=== PATIENT | female | born 1940 | race Caucasian/White ===

== ENCOUNTER → 2016-11-21 | Outpatient (CLI) | payer OTHER ==
[~2016-11-21] MED LIST: ASPI-232 PO; CYCL5TAB PO; ESTR1 PO; ESTROGENS-METHYLTEST PO; GABA-113 PO; LEVO75TA PO; MULTTAB58 PO; OMEG12006 PO
--- NOTE | 2016-11-21 12:01 | DIAGNOSTIC IMAGING REPORT ---
RIGHT SHOULDER MIN 2 VIEWS ROUTINE CLINICAL HISTORY: Right shoulder pain COMPARISON: None. DISCUSSION: No fractures or dislocations are visualized. There are no visible periarticular calcifications. Minor degenerative changes are present within the AC joint. There are postsurgical changes of midline sternotomy. There are postsurgical changes within the cervical spine. IMPRESSION: Unremarkable conventional radiographic evaluation of the right shoulder for age Electronically signed by: Davy Balderrama M.D. 11/21/2016 12:00 PM Dictated Date/Time: 11/21/2016 11:59 AM
--- NOTE | 2016-11-21 12:06 | DIAGNOSTIC IMAGING REPORT ---
LEFT SHOULDER 3 VIEWS HISTORY: BILATERAL SHOULDER PAIN COMPARISON: None. FINDINGS: There is no fracture or dislocation. Soft tissues are unremarkable. Poststernotomy changes are noted. There is slight cartilage space narrowing and a tiny marginal osteophyte at the glenohumeral joint. This is consistent with mild degenerative change. The left clavicle is intact. IMPRESSION: Mild left shoulder osteoarthritis. No fracture or dislocation. Electronically signed by: Magdiel Altman M.D. 11/21/2016 12:05 PM Dictated Date/Time: 11/21/2016 12:03 PM
== END | disposition home or self-care (01) ==
LOC: C.RAD1850 11:15
PROVIDERS: ATTEND Family Medicine
DX: M25.511 Pain in right shoulder (principal)

== ENCOUNTER → 2017-01-06 | Outpatient (CLI) | payer OTHER ==
--- NOTE | 2017-01-06 16:30 | MAMMOGRAPHY REPORT ---
BILATERAL DIGITAL SCREENING MAMMOGRAM TOMOSYNTHESIS WITH CAD: 01/06/2017 CLINICAL HISTORY: Routine screening. Patient has no complaints. TECHNIQUE: Breast tomosynthesis in addition to standard 2D mammography was performed. Current study was also evaluated with a Computer Aided Detection (CAD) system. COMPARISON: Comparison is made to exams dated: 01/14/2016 mammogram, 01/04/2016 mammogram, 01/01/2015 mammogram, 12/31/2013 mammogram - [facility], and 12/11/2012 mammogram. BREAST COMPOSITION: The tissue of both breasts is heterogeneously dense, which may obscure small ma sses. FINDINGS: No suspicious masses, calcifications, or areas of architectural distortion are noted in e ither breast. There has been no significant interval change compared to prior exams. Benign-appeari ng circumscribed masses are again noted within the left breast, with corresponding benign cysts seen on the prior 2015 ultrasound exam. IMPRESSION: ACR BI-RADS CATEGORY 2: BENIGN There is no mammographic evidence of malignancy. A 1 year screening mammogram is recommended. The p atient will receive written notification of the results. Approximately 10% of breast cancers are not detected with mammography. A negative mammographic repor t should not delay biopsy if a clinically suggestive mass is present. Elda Cottrell M.D. /:01/06/2017 13:41:29 Manager Meeting: Raquel VALVERDE(Fabrizio)(Ankush)([place]), [facility] letter sent: Normal 1/2 BI-RADS Code: ACR BI-RADS Category 2: Benign
== END | disposition home or self-care (01) ==
LOC: C.MAMM 11:14
PROVIDERS: ATTEND Family Medicine
DX: Z12.31 Encounter for screening mammogram for malignant neoplasm of breast (principal)

== ENCOUNTER → 2017-06-30 | Outpatient (CLI) | payer OTHER ==
--- NOTE | 2017-06-30 17:52 | DIAGNOSTIC IMAGING REPORT ---
LUMBAR SPINE W/O CONTRAST CLINICAL HISTORY: 76 years-old Female presenting with LOW BACK PAIN, constant pain for many years, especially with standing or sitting, bilateral reticular lung apices left greater than right. TECHNIQUE: Multisequence, multiplanar MR imaging of the lumbar spine was performed without the use of intravenous contrast. IV contrast: None. COMPARISON: Correlation made to CT of the abdomen and pelvis from 08/15/2016. FINDINGS: Localizer images: None available. Normal lumbar lordosis. Vertebral bodies demonstrate several T1 hyperintense, T2 hyperintense, fat-containing lesions consistent with benign hemangiomas. Fatty endplate changes noted at L3-4. Otherwise vertebral bodies maintain normal height, alignment, and bone marrow signal intensity. Mild intervertebral disc height loss noted at L3-4 with disc desiccation noted to varying degrees at the remaining levels. Multilevel degenerative changes further detailed below: L1-2: Mild disc bulge without significant neural foraminal or spinal canal stenosis. L2-3: Mild disc bulge without significant neural foraminal or spinal canal stenosis. L3-4: Mild disc bulge and facet arthropathy without significant neural foraminal or spinal canal stenosis. L4-5: Mild disc bulge, facet arthropathy, and ligamentum flavum thickening result in mild circumferential effacement of the thecal sac. No evidence of cauda equina impingement. Mild bilateral neural foraminal narrowing noted. L5-S1: No significant neural foraminal or spinal canal stenosis. Spinal cord ends in good position at L1. Cauda equina normal in morphology. Paraspinal soft tissues within normal limits. Tarlov cysts noted in the sacrum. IMPRESSION: Mild multilevel degenerative changes with mild bilateral neural foraminal narrowing at L4-5. Additional degenerative changes above. Electronically signed by: Robin Garcia M.D. 06/30/2017 5:51 PM Dictated Date/Time: 06/30/2017 5:46 PM
== END | disposition home or self-care (01) ==
LOC: C.MRIBC 16:06
PROVIDERS: ATTEND Family Medicine
DX: M54.5 Low back pain (principal)

== ENCOUNTER → 2018-01-08 | Outpatient (CLI) | payer OTHER ==
--- NOTE | 2018-01-09 13:18 | MAMMOGRAPHY REPORT ---
BILATERAL DIGITAL SCREENING MAMMOGRAM TOMOSYNTHESIS WITH CAD: 01/08/2018 CLINICAL HISTORY: Routine screening. Patient has no complaints. TECHNIQUE: Breast tomosynthesis in addition to standard 2D mammography was performed. Current study was also evaluated with a Computer Aided Detection (CAD) system. COMPARISON: Comparison is made to exams dated: 01/06/2017 mammogram, 01/14/2016 mammogram, 01/04/2016 m ammogram, 01/01/2015 mammogram, 12/31/2013 mammogram - [facility], and 12/11/2012 mamm ogram. BREAST COMPOSITION: The tissue of both breasts is heterogeneously dense, which may obscure small mas ses. FINDINGS: There are a few scattered stable benign-appearing calcifications. A circumscribed 7 mm mas s in the 7:00 left breast was previously documented to represent a simple cyst on ultrasound. No chelsey picious spiculated or irregular mass, architectural distortion or cluster of microcalcifications is s een. IMPRESSION: ACR BI-RADS CATEGORY 1: NEGATIVE There is no mammographic evidence of malignancy. A 1 year screening mammogram is recommended. The pa tient will receive written notification of the results. Approximately 10% of breast cancers are not detected with mammography. A negative mammographic report should not delay biopsy if a clinically suggestive mass is present. Wilma Beltran M.D. ay/:01/09/2018 07:40:37 Engineering Mgr: Raquel HERNÁNDEZ)(Ankush)([place]), [facility] letter sent: Normal 1/2 BI-RADS Code: ACR BI-RADS Category 1: Negative
== END | disposition home or self-care (01) ==
LOC: C.MAMM 11:32
PROVIDERS: ATTEND Family Medicine
DX: Z12.31 Encounter for screening mammogram for malignant neoplasm of breast (principal)

== ENCOUNTER → 2018-04-12 | Outpatient (CLI) | payer OTHER | END | disposition home or self-care (01) | LOC: C.MAMM 11:22 | PROVIDERS: ATTEND Family Medicine | DX: M85.89 Other specified disorders of bone density and structure, multiple sites (principal) ==